=== PATIENT | female | born 1995 | race Caucasian/White ===

== ENCOUNTER 2017-03-30 22:34 | Emergency (ER) | payer MEDICAID ==
[2017-03-30 22:55] VITALS: BP 117/79; PULSE 75; RESP 16; TEMP 98.4; O2SAT 98
--- NOTE | 2017-03-31 00:15 | C.PDOC ---
History Of Present Illness 21 y/o female c/o itchy rash to distal forearms after her friend's dog licked her arms today. Denies trouble breathing, swallowing, SOB, or any other complaints. Time Seen by Provider: 03/30/17 23:27 Chief Complaint (Nursing): Allergic Reaction History Per: Patient History/Exam Limitations: no limitations Onset/Duration Of Symptoms: Hrs Current Symptoms Are (Timing): Still Present Associated Symptoms: Skin Rash, Itching Severity: Mild Recent travel outside of the [place]: No Additional History Per: Patient Past Medical History Reviewed: Historical Data, Nursing Documentation, Vital Signs Vital Signs: Last Vital Signs Temp 98.4 F 03/30/17 22:52 Pulse 75 03/30/17 22:52 Resp 16 03/30/17 22:52 BP 117/79 03/30/17 22:52 Pulse Ox 98 03/31/17 02:49 - Medical History PMH: Asthma (as a child) Family History: States: Unknown Family Hx - Social History Hx Tobacco Use: No Hx Alcohol Use: Yes Hx Substance Use: No - Immunization History 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 2 urticarial patchs on the left distal forearm.) Head: Atraumatic, Normacephalic Oral Mucosa: Moist Tongue: No Swelling Lips: No Swelling Throat: Normal, No Erythema Cardiovascular: Rhythm Regular Respiratory: Normal Breath Sounds, No Rales, No Rhonchi, No Wheezing Neurological/Psych: Oriented x3, Normal Speech, Normal Cognition ED Course And Treatment O2 Sat by Pulse Oximetry: 98 (RA) Pulse Ox Interpretation: Normal Medical Decision Making Medical Decision Making: Impression: 21 y/o female c/o itchy rash to distal forearms after her friends dog licked her arms today. Plans: * Tylenol * Benadryl Patient is in no acute distress and is improving with the urticarial rash. Patient instructed to follow up with PMD for further evaluation. Disposition Counseled Patient/Family Regarding: Diagnosis, Need For Followup, Rx Given - Disposition Referrals: [facility] at [facility] [Outside] Disposition: HOME/ ROUTINE Disposition Time: 00:13 Condition: STABLE Additional Instructions: If itch and rash persist, take one benadryl by mouth every 6 hours. May make you sleepy- no driving or operating machinery wiht this medicine. Follow up in medical clinic. Return to ER for nay worsening symptoms. Prescriptions: DiphenhydrAMINE [Benadryl] 25 mg PO Q6 #20 cap Instructions: Urticaria (ED) Forms: General Discharge Instructions, [facility] (Greenlandic) - Clinical Impression Clinical Impression: Allergic urticaria - Scribe Statement The provider has reviewed the documentation as recorded by the Scribe Michell zapata All medical record entries made by the Candelariaibmarcy were at my direction and personally dictated by me. I have reviewed the chart and agree that the record accurately reflects my personal performance of the history, physical exam, medical decision making, and the department course for this patient. I have also personally directed, reviewed, and agree with the discharge instructions and disposition.
== END 2017-03-31 00:20 | disposition home or self-care (01) ==
LOC: C.ER 22:34
DX: L50.0 Allergic urticaria (principal)

== ENCOUNTER 2017-05-02 18:02 | Emergency (ER) | payer MEDICAID ==
[2017-05-02 18:56] LABS: RBC URINE 3 /hpf (0-3); URINE BILIRUBIN NEGATIVE (NEGATIVE); URINE BLOOD NEGATIVE (NEGATIVE); URINE GLUCOSE (UA) NORMAL (Normal); URINE KETONE 2+ mg/dL (NEGATIVE); URINE LEUKOCYTE ESTERASE 2+ Leu/uL (Negative); URINE PROTEIN 1+ mg/dL (NEGATIVE); WBC URINE 22 /hpf (0-5)
[2017-05-02 18:58] LABS: URINE COLOR YELLOW (YELLOW)
[2017-05-02] MEDS ORDERED: Sodium Chloride 0.9% 1,000 ML IV ONE ×2 (20:19→20:20)
[2017-05-02 20:48] LABS: BASO # 0.1 K/uL (0.0-0.2); BASO % 0.5 % (0.0-2.0); EOS % 0.2 % (0.0-4.0); LYMPH # 1.9 K/uL (1.0-4.3); LYMPH % 12.5 % (20.0-40.0); MEAN CELL VOLUME 79.9 fL (81.0-99.0); MEAN CORPUSCULAR HEMOGLOBIN 27.4 pg (27.0-31.0); MEAN CORPUSCULAR HGB CONC 34.3 g/dL (33.0-37.0); MEAN PLATELET VOLUME 10.7 fL (7.2-11.7); MONO % 6.8 % (0.0-10.0); RED CELL DISTRIBUTION WIDTH 13.7 % (11.5-14.5)
[2017-05-02 20:56] LABS: CHLORIDE 98 mmol/L (98-107); POTASSIUM 3.5 mmol/L (3.6-5.2); SODIUM 136 mmol/L (132-148)
[2017-05-02 20:58] LABS: ALB/GLOB RATIO 1.3 (1.0-2.1); AST/SGOT 23 U/L (14-36); BILIRUBIN,TOTAL 0.8 mg/dL (0.2-1.3); CARBON DIOXIDE 23 mmol/L (22-30); GFR AFRICAN-AMERICAN > 60; TOTAL PROTEIN 7.1 g/dL (6.3-8.3)
[2017-05-02 20:59] LABS: ALKALINE PHOSPHATASE 104 U/L (38-126); ALT/SGPT 31 U/L (9-52); BLOOD UREA NITROGEN 10 mg/dL (7-17); CALCIUM 9.1 mg/dl (8.6-10.4); GLUCOSE,RANDOM 134 mg/dL (65-105)
[2017-05-02 21:22] VITALS: O2SAT 98
--- NOTE | 2017-05-02 22:14 | C.PDOC ---
History Of Present Illness 21 year old female presents to the ED with complaints of epigastric pain and vomiting for three days. Patient states she drank large amounts of alcohol Kleber night and symptoms began the next day. She denies diarrhea, fever, chills , or other complaints at this time. Chief Complaint (Nursing): Abdominal Pain History Per: Patient History/Exam Limitations: no limitations Onset/Duration Of Symptoms: Days (3 days ) Current Symptoms Are (Timing): Still Present Location Of Pain/Discomfort: Epigastric Radiation Of Pain To:: None Quality Of Discomfort: "Pain" Associated Symptoms: Vomiting. 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 Negative for: Diarrhea Physical Exam - Physical Exam Appears: Non-toxic, No Acute Distress Skin: Warm, Dry Head: Atraumatic, Normacephalic Eye(s): bilateral: Normal Inspection Oral Mucosa: Moist Neck: Supple Chest: Symmetrical, No Deformity Cardiovascular: Rhythm Regular, No Murmur Respiratory: Normal Breath Sounds, No Rales, No Rhonchi, No Wheezing Gastrointestinal/Abdominal: Soft, Tenderness (epigastric tenderness ), No Distention, No Guarding, No Rebound Extremity: Normal ROM, No Tenderness ED Course And Treatment - Laboratory Results Result Diagrams: 05/02/17 20:44 05/02/17 20:44 O2 Sat by Pulse Oximetry: 98 (room air ) Progress Note: Labs were ordered and patient was given Pepcid, Zofran, and IV fluids. Disposition Counseled Patient/Family Regarding: Diagnosis - Disposition Referrals: [facility] at [facility] [Outside] Disposition: HOME/ ROUTINE Disposition Time: 23:22 Condition: STABLE Prescriptions: Famotidine [Pepcid] 20 mg PO BID #20 tab Nitrofurantoin Macrocrystals [Macrobid] 1 cap PO BID #14 cap Ondansetron ODT [Zofran ODT] 1 odt PO BID PRN #6 odt PRN Reason: Nausea/Vomiting Instructions: Gastritis (GEN), Urinary Tract Infection in Women (GEN), Acute Nausea and Vomiting (ED) Forms: [facility] (Nauruan) - POA Present On Arrival: None - Clinical Impression Clinical Impression: Gastritis, UTI (urinary tract infection) - Scribe Statement The provider has reviewed the documentation as recorded by the Scribe Dottie
[2017-05-02 23:04] VITALS: BP 126/78; PULSE 61; RESP 20; TEMP 98.4
== END 2017-05-02 23:40 | disposition home or self-care (01) ==
LOC: C.ER 18:02
DX: K29.70 Gastritis, unspecified, without bleeding (principal); N39.0 Urinary tract infection, site not specified
CPT/HCPCS: 80053; 81001; 83690; 84703; 85025; 87086; 96361; 96374; 96375; 99284; J2405; J7040

== ENCOUNTER 2017-05-04 13:44 | Emergency (ER) | payer MEDICAID ==
[2017-05-04 14:05] VITALS: RESP 16
--- NOTE | 2017-05-04 14:21 | C.PDOC ---
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
[2017-05-04 14:37] LABS: RBC URINE 1 /hpf (0-3); URINE BACTERIA RARE (<OCC); URINE BILIRUBIN NEGATIVE (NEGATIVE); URINE BLOOD NEGATIVE (NEGATIVE); URINE COLOR Amber (YELLOW); URINE GLUCOSE (UA) NORMAL (Normal); URINE KETONE 2+ mg/dL (NEGATIVE); URINE LEUKOCYTE ESTERASE TRACE Leu/uL (Negative); URINE PROTEIN 1+ mg/dL (NEGATIVE); WBC URINE 3 /hpf (0-5)
[2017-05-04] MEDS ORDERED: Alum-Mag Hydrox-Simethicone Susp (30 mL) PO STA (14:53)
[2017-05-04] MEDS ORDERED: Belladonna-Phenobarbital PO STA (14:54)
--- NOTE | 2017-05-04 15:02 | C.PDOC ---
History Of Present Illness 21 year old female presents to the ED for evaluation of nonradiating epigastric abdominal pain associated with nausea and vomiting which initially began around 5 days ago. Patient was evaluated in [facility] on 05/02 and was diagnosed with Gastritis and UTI and discharged with prescriptions. Patient states she took her medications yesterday and found significant relief. Patient states the pain returned this morning and presents to the ED for further evaluation. Patient admits she had pork chops for dinner last night. She denies fever, chills, diarrhea, or recent travel. Time Seen by Provider: 05/04/17 14:22 Chief Complaint (Nursing): Abdominal Pain History Per: Patient History/Exam Limitations: no limitations Onset/Duration Of Symptoms: Days Current Symptoms Are (Timing): Still Present Location Of Pain/Discomfort: Epigastric Radiation Of Pain To:: None Quality Of Discomfort: "Pain" Associated Symptoms: Nausea, Vomiting. 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 Negative for: Diarrhea Physical Exam - Physical Exam Appears: Non-toxic, No Acute Distress Skin: Normal Color, Warm, Dry Head: Atraumatic, Normacephalic Eye(s): bilateral: Normal Inspection Oral Mucosa: Moist Neck: Supple Chest: Symmetrical, No Deformity, No Tenderness Cardiovascular: Rhythm Regular, No Murmur Respiratory: Normal Breath Sounds, No Rales, No Rhonchi, No Wheezing Gastrointestinal/Abdominal: Bowel Sounds (active), Soft, No Tenderness, No Guarding, No Rebound Extremity: Normal ROM, Capillary Refill (less than 2 seconds ) Neurological/Psych: Normal Speech, Normal Cognition Gait: Steady ED Course And Treatment O2 Sat by Pulse Oximetry: 99 (on RA) Pulse Ox Interpretation: Normal Medical Decision Making Medical Decision Making: Old records reviewed, the patient was seen in the ED for similar symptoms on , had negative lab work and was discharged home with pepcid. Progress: US Abdomen and labs ordered and reviewed. PO, Maalox PO, Pepcid PO and Zofran PO administered. On re-exam, the patient reports improvement of symptoms. Abdomen is soft, non- tender and patient is tolerating PO well. Lungs are CTA, heart is RRR. Ambulatory in the ED with steady gait. Follow up with the medical doctor within 1-2 days. Return if worsened. Disposition - Disposition Referrals: Evita Morales MD [Medical Doctor] - Disposition: HOME/ ROUTINE Disposition Time: 16:40 Condition: GOOD Additional Instructions: Follow up with the medical doctor within 1-2 days. Return if worsened. Prescriptions: Aluminum Hydroxide/Magnesium H [Maalox 30 ml] 30 ml PO TID #180 ml Omeprazole 20 mg PO DAILY #30 ecc Instructions: Gastritis (ED) Forms: [facility] (Ethiopian) - Clinical Impression Clinical Impression: Gastritis - PA / [employer] / Resident Statement MD/DO has reviewed & agrees with the documentation as recorded. - Scribe Statement The provider has reviewed the documentation as recorded by the Scribe (Karina Almeida) All medical record entries made by the Scribe were at my direction and personally dictated by me. I have reviewed the chart and agree that the record accurately reflects my personal performance of the history, physical exam, medical decision making, and the department course for this patient. I have also personally directed, reviewed, and agree with the discharge instructions and disposition.
[2017-05-04] MEDS ORDERED: Alum-Mag Hydrox-Simethicone Susp (30 mL) ONE (15:05)
[2017-05-04] MEDS ORDERED: Belladonna-Phenobarbital ONE (15:05)
--- NOTE | 2017-05-04 16:00 | US ---
HISTORY: RUQ, epigastric pain COMPARISON: Comparison is made to the previous study dated 10/11/2013 TECHNIQUE: Sonographic evaluation of the right upper quadrant of the abdomen. FINDINGS: LIVER: Measures 17.2 cm in length. Mild increase echogenicity of the liver parenchyma. No mass. No intrahepatic bile duct dilatation. GALLBLADDER: Unremarkable. No gallstones. COMMON BILE DUCT: Measures 3.0 mm. No stones. No dilatation. PANCREAS: Unremarkable as visualized. No mass. No ductal dilatation. RIGHT KIDNEY: Measures 11.2 x 4.7 x 5.5 cm in length. Normal echogenicity. No calculus, mass, or hydronephrosis. AORTA: No aneurysmal dilatation. IVC: Unremarkable. OTHER FINDINGS: None . IMPRESSION: No evidence of gallstones or cholecystitis. Re- demonstration of mild hepatomegaly and mild hepatic steatosis.
[2017-05-04 17:05] VITALS: BP 149/84; PULSE 85; TEMP 98.2
[2017-05-08 16:37] VITALS: O2SAT 99
== END 2017-05-04 17:05 | disposition home or self-care (01) ==
LOC: C.ER 13:44
DX: K29.70 Gastritis, unspecified, without bleeding (principal)

== ENCOUNTER 2017-06-25 00:41 | Inpatient (IN) | payer MEDICAID ==
--- NOTE | 2017-06-25 01:01 | C.PDOC ---
History Of Present Illness Patient presents to the ER with a complaint of abdominal pain, nausea and vomiting for the past 2 days, she notes blood in her vomit. Patient states she had similar episodes in the past, at the time she had an US and CT which were both negative and was told she possibly had gastritis. Patient finished her antacid medication but is now having pain again. Patient reports she still smokes but stopped drinking last month. Denies fever or chills. Time Seen by Provider: 06/25/17 01:01 Chief Complaint (Nursing): Abdominal Pain History Per: Patient History/Exam Limitations: no limitations Onset/Duration Of Symptoms: Hrs Current Symptoms Are (Timing): Still Present Severity: Mild Pain Scale Rating Of: 4 Location Of Pain/Discomfort: Epigastric Radiation Of Pain To:: None Quality Of Discomfort: Unable To Describe Associated Symptoms: Nausea, Vomiting. denies: Fever, Chills Alleviating Factors: None Last Bowel Movement: Yesterday Recent travel outside of the [place]: No Additional History Per: Family Abnormal Vaginal Bleeding: No Past Medical History Reviewed: Historical Data, Nursing Documentation, Vital Signs Vital Signs: Last Vital Signs Temp 98.1 F 06/25/17 00:48 Pulse 88 06/25/17 00:48 Resp 16 06/25/17 00:48 BP 134/81 06/25/17 00:48 Pulse Ox 98 06/25/17 01:46 - Medical History PMH: Asthma (as a child), Gastritis Surgical History: No Surg Hx Family History: States: Unknown Family Hx - Social History Hx Tobacco Use: No Hx Alcohol Use: No (former) Hx Substance Use: Yes - Immunization History Hx 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) Hx Influenza Vaccination: No Hx Pneumococcal Vaccination: No Review Of Systems Constitutional: Negative for: Fever, Chills ENT: Negative for: Throat Pain Cardiovascular: Negative for: Chest Pain Gastrointestinal: Positive for: Nausea, Vomiting, Abdominal Pain Musculoskeletal: Negative for: Back Pain Skin: Negative for: Rash Neurological: Negative for: Weakness Psych: Negative for: Anxiety Physical Exam - Physical Exam Appears: Non-toxic, Other (Morbidly obese) Skin: Warm, Dry Head: Normacephalic Eye(s): bilateral: Normal Inspection Oral Mucosa: Moist Neck: Trachea Midline, Supple Chest: Symmetrical Cardiovascular: Rhythm Regular Respiratory: No Rales, No Rhonchi, No Wheezing Gastrointestinal/Abdominal: Soft, Tenderness (Epigastric), No Guarding, No Rebound Back: No CVA Tenderness Extremity: Normal ROM Extremity: Bilateral: Atraumatic, Normal Color And Temperature, Normal ROM Pulses: Left Dorsalis Pedis: Normal, Right Dorsalis Pedis: Normal Neurological/Psych: Oriented x3, Normal Speech, Normal Cognition Gait: Steady ED Course And Treatment - Laboratory Results Result Diagrams: 06/25/17 01:26 06/25/17 01:26 O2 Sat by Pulse Oximetry: 98 (Room air) Pulse Ox Interpretation: Normal Progress Note: Blood work, urinalysis and occult blood test ordered. Protonix and zofran administered. Disposition Discussed With Dr.: Emili Hartmann Comment: accepted the pt on is service and took over the care at 2:16 AM Doctor Will See Patient In The: Hospital Counseled Patient/Family Regarding: Studies Performed, Diagnosis - Disposition Disposition: HOSPITALIZED Disposition Time: 01:01 Condition: FAIR Forms: [facility] (Uzbek) - POA Present On Arrival: None - Clinical Impression Clinical Impression: Abdominal pain, Upper GI bleed - Scribe Statement The provider has reviewed the documentation as recorded by the Scribe Aleksandar Freed All medical record entries made by the Scribe were at my direction and personally dictated by me. I have reviewed the chart and agree that the record accurately reflects my personal performance of the history, physical exam, medical decision making, and the department course for this patient. I have also personally directed, reviewed, and agree with the discharge instructions and disposition. Decision To Admit - Pt Status Changed To: Hospital Disposition Of: Inpatient - Admit Certification Admit to Inpatient:: After my assessment, the patient will require hospitalization for at least two midnights. This is because of the severity of symptoms shown, intensity of services needed, and/or the medical risk in this patient being treated as an outpatient. - InPatient: Physician Admission Certification:: After my assessment, the patient will require hospitalization for at least two midnights. This is because of the severity of symptoms shown, intensity of services needed, and/or the medical risk in this patient being treated as an outpatient. - . Bed Request Type: Regular Admitting Physician: Emili Hartmann Patient Diagnosis: Abdominal pain, Upper GI bleed
[2017-06-25 01:31] LABS: BASO % 0.4 % (0.0-2.0); EOS % 0.2 % (0.0-4.0); HEMATOCRIT 43.1 % (34.0-47.0); LYMPH # 1.4 K/uL (1.0-4.3); LYMPH % 12.9 % (20.0-40.0); MEAN CELL VOLUME 81.7 fL (81.0-99.0); MEAN CORPUSCULAR HEMOGLOBIN 27.7 pg (27.0-31.0); MEAN CORPUSCULAR HGB CONC 33.9 g/dL (33.0-37.0); MEAN PLATELET VOLUME 11.5 fL (7.2-11.7); MONO # 0.9 K/uL (0.0-0.8); RED CELL DISTRIBUTION WIDTH 14.4 % (11.5-14.5); WHITE BLOOD COUNT 11.1 K/uL (4.8-10.8)
[2017-06-25 01:38] LABS: RBC URINE 3 /hpf (0-3); URINE BACTERIA RARE (<OCC); URINE BILIRUBIN NEGATIVE (NEGATIVE); URINE BLOOD 1+ (NEGATIVE); URINE COLOR Yellow (YELLOW); URINE GLUCOSE (UA) 1+ mg/dL (Normal); URINE KETONE 1+ mg/dL (NEGATIVE); URINE LEUKOCYTE ESTERASE NEG Leu/uL (Negative); URINE PROTEIN 2+ mg/dL (NEGATIVE); URINE UROBILINOGEN NORMAL mg/dL (0.2-1.0); WBC URINE 20 /hpf (0-5)
[2017-06-25 01:39] LABS: INR 1.1
[2017-06-25 01:44] LABS: CALCIUM 9.1 mg/dl (8.6-10.4); GFR AFRICAN-AMERICAN > 60; GLUCOSE,RANDOM 145 mg/dL (65-105)
[2017-06-25 01:45] LABS: BLOOD UREA NITROGEN 7 mg/dL (7-17); SODIUM 134 mmol/L (132-148)
[2017-06-25 01:46] LABS: ALB/GLOB RATIO 1.1 (1.0-2.1); BILIRUBIN,TOTAL 1.3 mg/dL (0.2-1.3); CARBON DIOXIDE 20 mmol/L (22-30); CHLORIDE 102 mmol/L (98-107); POTASSIUM 4.6 mmol/L (3.6-5.2); TOTAL PROTEIN 8.6 g/dL (6.3-8.3)
[2017-06-25 01:47] LABS: ALKALINE PHOSPHATASE 96 U/L (38-126); ALT/SGPT 23 U/L (9-52); AST/SGOT 36 U/L (14-36)
[2017-06-25] MEDS ORDERED: Dextrose 5%/0.45% NS 1,000 ML IV ONE (02:32)
[2017-06-25] MEDS: Dextrose 5%/0.45% NS 1,000 ML IV SCH ×3 (02:44→19:30)
[2017-06-25 07:29] LABS: BASO % 0.3 % (0.0-2.0); HEMATOCRIT 39.5 % (34.0-47.0); LYMPH # 0.8 K/uL (1.0-4.3); LYMPH % 5.4 % (20.0-40.0); MEAN CELL VOLUME 79.2 fL (81.0-99.0); MEAN CORPUSCULAR HEMOGLOBIN 28.3 pg (27.0-31.0); MEAN CORPUSCULAR HGB CONC 35.7 g/dL (33.0-37.0); MEAN PLATELET VOLUME 11.2 fL (7.2-11.7); MONO # 0.4 K/uL (0.0-0.8); MONO % 2.7 % (0.0-10.0); PLATELET COUNT 218 K/uL (130-400); RED CELL DISTRIBUTION WIDTH 13.8 % (11.5-14.5); WHITE BLOOD COUNT 14.5 K/uL (4.8-10.8)
[2017-06-25 08:11] LABS: ALB/GLOB RATIO 1.6 (1.0-2.1); ALKALINE PHOSPHATASE 96 U/L (38-126); ALT/SGPT 29 U/L (9-52); AST/SGOT 20 U/L (14-36); BLOOD UREA NITROGEN 9 mg/dL (7-17); CALCIUM 9.1 mg/dl (8.6-10.4); CARBON DIOXIDE 20 mmol/L (22-30); CHLORIDE 101 mmol/L (98-107); GFR AFRICAN-AMERICAN > 60; GLUCOSE,RANDOM 179 mg/dL (65-105); POTASSIUM 3.9 mmol/L (3.6-5.2); SODIUM 133 mmol/L (132-148); TOTAL PROTEIN 6.8 g/dL (6.3-8.3)
[2017-06-25 09:12] LABS: NEUTROPHIL 92 % (50-75); TOTAL CELLS COUNTED 100
[2017-06-25 09:13] LABS: LARGE PLATELETS PRESENT
[2017-06-25 09:14] LABS: GIANT PLATELETS PRESENT
--- NOTE | 2017-06-25 14:21 | CP.PCM.HP ---
History of Present Illness - History of Present Illness History of Present Illness: COMPREHENSIVE HISTORY & PHYSICAL EXAM HPI PRESENTED TO ER WITH NAUSEA AND VOMITING MIXED WITH BLOOD . GASTRIC CONTENTS WAS POS FOR BLOOD IN 04/24, CT/U/S ABD. SHOWED FATTY LIVER NO BLACK STOOL PAST HIST. PERSONAL HIST: Smoking. [place] Alcohol. Y Allergy N Travel_- . FAMILY HIST : ROS : usage o Constitutional: Negative for weight change, chills, night sweats Eyes: Negative for redness, swelling, itching, discharge, vision changes, blurry vision, double vision, glaucoma, cataracts, Ears: Negative for hearing loss, ringing, , tinnitus, vertigo Nose: Negative for rhinorrhea, stuffiness, sniffing, itching, postnasal drip, discoloration, nasal congestion and epistaxis. Throat: Negative for throat clearing, sore throat, hoarseness, difficulty swallowing and difficulty speaking. Respiratory: Negative for cough, , sputum production, chest tightness, wheezing, pleuritic chest pain ,daytime somnolence, chronic cough, hemoptysis, snoring at night, Cardiovascular: Negative for chest pain, palpitations, orthopnea, PND, Edema of legs, leg cramps, angina, claudication, , irregular heartbeat, Neurology: Negative for irritability, muscle weakness, numbness and tingling, seizures, tremors, migraines, slurred speech, syncope, memory loss, mood changes , recurrent headaches Gastrointestinal: Negative for difficulty swallowing, diarrhea, constipation, black stools, rectal bleeding, S, flatulence, reflux, poor appetite, changes in bowel habits, abdominal pain Genitourinary: Negative for frequent urination, hematuria, discharge, incontinence, urinary retention, frequent UTI, Psychiatric: Negative for depression, anxiety/panic, suicidal tendencies, Musculoskeletal: Negative for swollen joints, back pain, , neck pain, morning stiffness of joints, . Skin: Negative for rash, ulcers, itching, dry skin and pigmented lesions. P/E: Constitutional: Appears stated age and in no apparent distress. Head: Normocephalic. Ears: External ear canals patent without inflammation. Tympanic membranes intact with normal light reflex and landmark. Eyes: Pupils are central, bilaterally equal, symmetrical and reacts to light with normal movements and no icterus or pallor. Nose: External nares are patent. Mucosa is pink Mouth-Throat: Good general appearance and condition. No post-pharyngeal/oropharyngeal erythema and tonsillar hypertrophy. Good dental hygiene. Neck-Lymphatic: Neck is supple with normal ROM, no thyromegaly, lymph nodes or masses. JVD is normal with no carotid bruit. Lungs: Clear to percussion and auscultation with bilateral normal air entry. Cardiovascular: S1 and S2 are normal with no murmurs, gallops and rub. GI Exam: No hepatomegaly. Abdomen is soft and non-tender. No Organomegaly , masses or hernias are evident and bowel sounds are normal and active. Neurology: Higher function and all cranial nerves intact, with no gross motor or sensory deficit. Superficial and deep reflexes are normal with downwards planters. No cerebellar deficit with normal gait. Musculoskeletal: No tender spots with normal curvature of the spine with no swelling or restricted ROM of the small and large joints. Extremities: Homans sign absent. Intact pulses with no pitting edema, calf tenderness or skin color changes. Skin: No rash, eruptions or abnormal skin pigmentation LAB/RADIOLOGY: ASSESMENT : UPPER GI BLEED , / GASTRITIS FATTY LIVER PLAN: SEE ORDERS Present on Admission - Present on Admission Any Indicators Present on Admission: No Past Patient History - Past Medical History & Family History Past Medical History?: Yes - Past Social History Smoking Status: Never Smoked - CARDIAC Hx Cardiac Disorders: No - PULMONARY Hx Respiratory Disorders: Yes Hx Asthma: Yes (as a child) - NEUROLOGICAL Hx Neurological Disorder: No - HEENT Hx HEENT Problems: No - RENAL Hx Chronic Kidney Disease: No - ENDOCRINE/METABOLIC Hx Endocrine Disorders: No - HEMATOLOGICAL/ONCOLOGICAL Hx Blood Disorders: No - INTEGUMENTARY Hx Dermatological Problems: No - MUSCULOSKELETAL/RHEUMATOLOGICAL Hx Musculoskeletal Disorders: No Hx Falls: No - GASTROINTESTINAL Hx Gastrointestinal Disorders: Yes Hx Gastritis: Yes - GENITOURINARY/GYNECOLOGICAL Hx Genitourinary Disorders: No - PSYCHIATRIC Hx Psychophysiologic Disorder: Yes Hx Substance Use: Yes (marijuana) - SURGICAL HISTORY Hx Surgeries: No - ANESTHESIA Hx Anesthesia: No Hx Anesthesia Reactions: No Meds Allergies/Adverse Reactions: Allergies Allergy/AdvReac Type Severity Reaction Status Date / Time No Known Allergies Allergy Verified 06/25/17 00:52 Results - Vital Signs Recent Vital Signs: Last Vital Signs Temp 98.1 F 06/25/17 08:13 Pulse 60 06/25/17 08:13 Resp 21 11/18/17 08:13 BP 133/73 06/25/17 08:13 Pulse Ox 99 06/25/17 08:13 - Labs Result Diagrams: 06/25/17 07:10 06/25/17 07:10 Labs: Laboratory Results - last 24 hr 06/25/17 06/25/17 06/25/17 01:26 01:26 01:26 WBC 11.1 H RBC 5.28 H Hgb 14.6 Hct 43.1 MCV 81.7 MCH 27.7 MCHC 33.9 RDW 14.4 Plt Count 239 MPV 11.5 Neut % (Auto) 78.5 H Lymph % (Auto) 12.9 L [place] % (Auto) 8.0 Eos % (Auto) 0.2 Baso % (Auto) 0.4 Neut # 8.7 H Lymph # 1.4 [place] # 0.9 H Eos # 0.0 Baso # 0.0 Neutrophils % (Manual) Lymphocytes % (Manual) Monocytes % (Manual) Toxic Granulation Platelet Estimate Large Platelets Giant Platelets Anisocytosis (manual) PT 12.6 H INR 1.1 APTT 18 L Sodium 134 Potassium 4.6 Chloride 102 Carbon Dioxide 20 L Anion Gap 17 BUN 7 Creatinine 0.6 L Est GFR ( Amer) > 60 Est GFR (Non-Af Amer) > 60 Random Glucose 145 H Calcium 9.1 Total Bilirubin 1.3 AST 36 D ALT 23 Alkaline Phosphatase 96 Total Protein 8.6 H Albumin 4.5 Globulin 4.1 H Albumin/Globulin Ratio 1.1 Lipase 68 Urine Color Urine Clarity Urine pH Ur Specific [place] Urine Protein Urine Glucose (UA) Urine Ketones Urine Blood Urine Nitrate Urine Bilirubin Urine Urobilinogen Ur Leukocyte Esterase Urine WBC (Auto) Urine RBC (Auto) Ur Squamous Epith Cells Urine Bacteria Hyaline Casts Urine HCG, Qual Gastric Occult Blood 06/25/17 06/25/17 06/25/17 01:27 01:43 07:10 WBC 14.5 H RBC 4.99 Hgb 14.1 Hct 39.5 MCV 79.2 L D MCH 28.3 MCHC 35.7 RDW 13.8 Plt Count 218 MPV 11.2 Neut % (Auto) 91.6 H Lymph % (Auto) 5.4 L [place] % (Auto) 2.7 Eos % (Auto) 0.0 Baso % (Auto) 0.3 Neut # 13.3 H Lymph # 0.8 L [place] # 0.4 Eos # 0.0 Baso # 0.0 Neutrophils % (Manual) 92 H Lymphocytes % (Manual) 6 L Monocytes % (Manual) 2 Toxic Granulation Present Platelet Estimate Normal Large Platelets Present Giant Platelets Present Anisocytosis (manual) Slight PT INR APTT Sodium Potassium Chloride Carbon Dioxide Anion Gap BUN Creatinine Est GFR ( Amer) Est GFR (Non-Af Amer) Random Glucose Calcium Total Bilirubin AST ALT Alkaline Phosphatase Total Protein Albumin Globulin Albumin/Globulin Ratio Lipase Urine Color Yellow Urine Clarity Hazy Urine pH 5.0 Ur Specific [place] 1.023 Urine Protein 2+ H Urine Glucose (UA) 1+ Urine Ketones 1+ H Urine Blood 1+ H Urine Nitrate Negative Urine Bilirubin Negative Urine Urobilinogen Normal Ur Leukocyte Esterase Neg Urine WBC (Auto) 20 H Urine RBC (Auto) 3 Ur Squamous Epith Cells 21 H Urine Bacteria Rare Hyaline Casts 3-5 H Urine HCG, Qual Negative Gastric Occult Blood Positive H 06/25/17 07:10 WBC RBC Hgb Hct MCV MCH MCHC RDW Plt Count MPV Neut % (Auto) Lymph % (Auto) [place] % (Auto) Eos % (Auto) Baso % (Auto) Neut # Lymph # [place] # Eos # Baso # Neutrophils % (Manual) Lymphocytes % (Manual) Monocytes % (Manual) Toxic Granulation Platelet Estimate Large Platelets Giant Platelets Anisocytosis (manual) PT INR APTT Sodium 133 Potassium 3.9 Chloride 101 Carbon Dioxide 20 L Anion Gap 15 BUN 9 Creatinine 0.6 L Est GFR ( Amer) > 60 Est GFR (Non-Af Amer) > 60 Random Glucose 179 H Calcium 9.1 Total Bilirubin 1.0 AST 20 ALT 29 Alkaline Phosphatase 96 Total Protein 6.8 Albumin 4.2 Globulin 2.6 Albumin/Globulin Ratio 1.6 Lipase Urine Color Urine Clarity Urine pH Ur Specific [place] Urine Protein Urine Glucose (UA) Urine Ketones Urine Blood Urine Nitrate Urine Bilirubin Urine Urobilinogen Ur Leukocyte Esterase Urine WBC (Auto) Urine RBC (Auto) Ur Squamous Epith Cells Urine Bacteria Hyaline Casts Urine HCG, Qual Gastric Occult Blood
[2017-06-26] MEDS: Dextrose 5%/0.45% NS 1,000 ML IV SCH ×3 (04:30→20:10)
[2017-06-26 08:34] LABS: HEMATOCRIT 38.8 % (34.0-47.0); MEAN CELL VOLUME 80.2 fL (81.0-99.0); MEAN CORPUSCULAR HEMOGLOBIN 27.7 pg (27.0-31.0); MEAN CORPUSCULAR HGB CONC 34.5 g/dL (33.0-37.0); MEAN PLATELET VOLUME 11.6 fL (7.2-11.7); RED CELL DISTRIBUTION WIDTH 13.9 % (11.5-14.5); WHITE BLOOD COUNT 12.9 K/uL (4.8-10.8)
[2017-06-26 08:58] LABS: ALB/GLOB RATIO 1.7 (1.0-2.1); ALKALINE PHOSPHATASE 86 U/L (38-126); ALT/SGPT 28 U/L (9-52); AST/SGOT 17 U/L (14-36); BILIRUBIN,DIRECT 0.6 mg/dL (0.0-0.4); BILIRUBIN,TOTAL 1.1 mg/dL (0.2-1.3); BLOOD UREA NITROGEN 7 mg/dL (7-17); CALCIUM 8.7 mg/dl (8.6-10.4); CARBON DIOXIDE 21 mmol/L (22-30); CHLORIDE 100 mmol/L (98-107); GFR AFRICAN-AMERICAN > 60; GLUCOSE,RANDOM 179 mg/dL (65-105); POTASSIUM 3.2 mmol/L (3.6-5.2); SODIUM 131 mmol/L (132-148); TOTAL PROTEIN 6.5 g/dL (6.3-8.3)
--- NOTE | 2017-06-26 11:17 | CP.PCM.CON ---
<Amarilis Kaur - Last Filed: 06/26/17 11:23> History of Present Illness - History of Present Illness History of Present Illness: GI Fellow PGY4 Consult Note This is a 21yF with no prior pmhx presenting to the ER with a complaint of abdominal pain, nausea and vomiting for the past 2 days, she notes blood in her vomit. Patient states she had similar episodes in the past, at the time she had an US and CT which were both negative and was told she possibly had gastritis. Patient finished her antacid medication prilosec but is now having pain again. Pt reports in April she had a similar episode after drinking a lot of alcohol and has since stopped drinking. Patient reports she smokes cigarets and marijuana everyday since she was 15yrs ago. Pt denies any abdominal pain associated with food consumptions and this type of pain recently started. She also notes some heartburn and acid reflux. Pt states she will have episodes of vomiting multiple times and then would notice bright blood in here emesis and she will get better after a few days followed by similar symptoms. Pt denies any constipation, melena, hematochezia. No prior EGD or colonoscopy. ROS: A 12pt ROS was negative except as above PmHx: None PsHx: None FHx: Uncle with gallbladder issues SHx: Tobacco use and smokes marijuana daily, stopped alcohol 2 months ago Past Patient History - Past Medical History & Family History Past Medical History?: Yes - Past Social History Smoking Status: Never Smoked - CARDIAC Hx Cardiac Disorders: No - PULMONARY Hx Respiratory Disorders: Yes Hx Asthma: Yes (as a child) - NEUROLOGICAL Hx Neurological Disorder: No - HEENT Hx HEENT Problems: No - RENAL Hx Chronic Kidney Disease: No - ENDOCRINE/METABOLIC Hx Endocrine Disorders: No - HEMATOLOGICAL/ONCOLOGICAL Hx Blood Disorders: No - INTEGUMENTARY Hx Dermatological Problems: No - MUSCULOSKELETAL/RHEUMATOLOGICAL Hx Musculoskeletal Disorders: No Hx Falls: No - GASTROINTESTINAL Hx Gastrointestinal Disorders: Yes Hx Gastritis: Yes - GENITOURINARY/GYNECOLOGICAL Hx Genitourinary Disorders: No - PSYCHIATRIC Hx Psychophysiologic Disorder: Yes Hx Substance Use: Yes (marijuana) - SURGICAL HISTORY Hx Surgeries: No - ANESTHESIA Hx Anesthesia: No Hx Anesthesia Reactions: No Meds Allergies/Adverse Reactions: Allergies Allergy/AdvReac Type Severity Reaction Status Date / Time No Known Allergies Allergy Verified 06/25/17 00:52 - Medications Medications: Current Medications Dextrose/Sodium Chloride (Dextrose 5%/0.45% Ns 1000 Ml) 1,000 mls @ 120 mls/hr IV .Q8H20M YE Last Admin: 06/26/17 04:30 Dose: 120 mls/hr Pantoprazole Sodium (Protonix Inj) 40 mg IVP DAILY [facility] Pneumococcal Polyvalent Vaccine (Pneumovax 23 Vaccine) 0.5 ml IM .ONCE ONE Stop: 06/27/17 10:01 Physical Exam - Constitutional Appears: Non-toxic, No Acute Distress - Head Exam Head Exam: ATRAUMATIC, NORMAL INSPECTION, NORMOCEPHALIC - Eye Exam Eye Exam: EOMI, Normal appearance, PERRL Pupil Exam: NORMAL ACCOMODATION, PERRL - ENT Exam ENT Exam: Mucous Membranes Moist, Normal Exam - Neck Exam Neck exam: Positive for: Full Rom, Normal Inspection - Respiratory Exam Respiratory Exam: Clear to Auscultation Bilateral, NORMAL BREATHING PATTERN - Cardiovascular Exam Cardiovascular Exam: REGULAR RHYTHM, RRR - GI/Abdominal Exam GI & Abdominal Exam: Normal Bowel Sounds, Soft, Tenderness. absent: Distended, Firm, Guarding, Organomegaly - Rectal Exam Rectal Exam: Deferred - Extremities Exam Extremities exam: Positive for: full ROM, normal inspection - Back Exam Back exam: NORMAL INSPECTION - Neurological Exam Neurological exam: Alert, Oriented x3 - Psychiatric Exam Psychiatric exam: Normal Affect, Normal Mood - Skin Skin Exam: Dry, Intact, Normal Color, Warm Results - Vital Signs Recent Vital Signs: Last Vital Signs Temp 97.7 F 06/26/17 00:10 Pulse 73 06/26/17 00:10 Resp 16 06/26/17 00:10 BP 122/76 06/26/17 00:10 Pulse Ox 98 06/26/17 00:10 - Labs Result Diagrams: 06/26/17 08:23 06/26/17 08:23 Labs: Laboratory Results - last 24 hr 06/26/17 06/26/17 08:23 08:23 WBC 12.9 H RBC 4.83 Hgb 13.4 Hct 38.8 MCV 80.2 L MCH 27.7 MCHC 34.5 RDW 13.9 Plt Count 202 MPV 11.6 Sodium 131 L Potassium 3.2 L Chloride 100 Carbon Dioxide 21 L Anion Gap 14 BUN 7 Creatinine 0.5 L Est GFR ( Amer) > 60 Est GFR (Non-Af Amer) > 60 Random Glucose 179 H Calcium 8.7 Total Bilirubin 1.1 Direct Bilirubin 0.6 H AST 17 ALT 28 Alkaline Phosphatase 86 Total Protein 6.5 Albumin 4.1 Globulin 2.4 Albumin/Globulin Ratio 1.7 Assessment & Plan - Assessment and Plan (Free Text) Assessment: This is a 21yF presenting with complaints of nausea, vomiting, abdominal pain and hematemesis. 1. Cyclical vomiting syndrome-cannabis induced 2. GERD/Dyspepsia 3. Hematemesis Plan: -Continue supportive care with pain control and anti-emetics -No active GI bleeding, Hgb stable, hemodynamically stable -Continue PPI po 40mg daily 30minutes prior to breakfast -Advance to clear liquid diet today -No plan for endoscopic evaluation at this time, if symptoms do not improve with PPI trial can consider outpt EGD -N/V and abdominal pain likely from Cannabis induced cyclical vomiting syndrome , this was discussed with pt and counseled on cessation -Will continue to follow pt <Tadeo Spears - Last Filed: 06/26/17 12:01> Meds - Medications Medications: Current Medications Dextrose/Sodium Chloride (Dextrose 5%/0.45% Ns 1000 Ml) 1,000 mls @ 120 mls/hr IV .Q8H20M YE Last Admin: 06/26/17 04:30 Dose: 120 mls/hr Pantoprazole Sodium (Protonix Inj) 40 mg IVP DAILY [facility] Pneumococcal Polyvalent Vaccine (Pneumovax 23 Vaccine) 0.5 ml IM .ONCE ONE Stop: 06/27/17 10:01 Results - Vital Signs Recent Vital Signs: Last Vital Signs Temp 97.7 F 06/26/17 00:10 Pulse 73 06/26/17 00:10 Resp 16 06/26/17 00:10 BP 122/76 06/26/17 00:10 Pulse Ox 98 06/26/17 00:10 - Labs Result Diagrams: 06/26/17 08:23 06/26/17 08:23 Labs: Laboratory Results - last 24 hr 06/26/17 06/26/17 06/26/17 08:23 08:23 08:23 WBC 12.9 H RBC 4.83 Hgb 13.4 Hct 38.8 MCV 80.2 L MCH 27.7 MCHC 34.5 RDW 13.9 Plt Count 202 MPV 11.6 Sodium 131 L Potassium 3.2 L Chloride 100 Carbon Dioxide 21 L Anion Gap 14 BUN 7 Creatinine 0.5 L Est GFR ( Amer) > 60 Est GFR (Non-Af Amer) > 60 Random Glucose 179 H Calcium 8.7 Total Bilirubin 1.1 Direct Bilirubin 0.6 H AST 17 ALT 28 Alkaline Phosphatase 86 Total Protein 6.5 Albumin 4.1 Globulin 2.4 Albumin/Globulin Ratio 1.7 Hepatitis A IgM Ab Negative Hep Bs Antigen Negative Hep B Core IgM Ab Negative Hepatitis C Antibody Negative Attending/Attestation - Attestation I have personally seen and examined this patient.: Yes I have fully participated in the care of the patient.: Yes I have reviewed all pertinent clinical information: Yes Notes (Text): 06/26/17 11:59 21 year old female who presents with recurrent nausea and vomiting. 1. Nausea and vomiting 2. GERD 3. Hematemesis Plan: -ddx include cyclic vomiting syndrome from chronic daily marijuana usage as well as GERD -CT done previous admission was unremarkable -minimal hematemesis noted, possible christian gordon tear from vomiting or esophagitis -recommend PPI BID -zofran as needed -liquid diet and advance as tolerated -marijuana cessation advised
--- NOTE | 2017-06-26 14:48 | CP.PCM.PN ---
Subjective - Date & Time of Evaluation Date of Evaluation: 06/26/17 Time of Evaluation: 14:46 - Subjective Subjective: CHIEF COMPLAINTS TODAY : GEN ABD PAIN A/W VOMITING NO FURTHER GI BLEEDING ROS. HEENT : N. Resp : No cough, wheezing ,pleuritic CP ,or hemoptysis Cardio : No anginal CP, PND, orthopnea, palpitation GI : No GI bleeding . 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 Musculoskel : No joint swelling , Derm : No rash Psych : Normal affect. Ext : No swelling ,calf pain PE. Pt. is alert awake in no distress. V.S As noted in the chart Head ,ear nose,throat and eyes : Normal. Neck : Supple with normal carotids. Lungs: Clear air entry. Heart : S1 & S2 normal with S4. No murmur. Abd : Soft non tender with normal bowel sounds. Neuro : Moves all ext. with no localized deficit. Ext : No edema with intact pulses.Non tender calves Derm : No rashes or decubitus ulcer. LABS/RADIOLOGY: ASSESSMENT/PLAN : ADD BENTYL PT WILL NEED EGD Objective - Vital Signs/Intake and Output Vital Signs (last 24 hours): Temp Pulse Resp BP Pulse Ox 97.7 F 73 16 122/76 98 06/26/17 00:10 06/26/17 00:10 06/26/17 00:10 06/26/17 00:10 06/26/17 00:10 Intake and Output: 06/26/17 06/26/17 11:59 23:59 Intake Total 1000 120 Output Total 50 Balance 950 120 - Medications Medications: Current Medications Dicyclomine HCl (Bentyl) 10 mg PO Q8 [facility] Last Admin: 06/26/17 13:44 Dose: 10 mg Dextrose/Sodium Chloride (Dextrose 5%/0.45% Ns 1000 Ml) 1,000 mls @ 120 mls/hr IV .Q8H20M [facility] Last Admin: 06/26/17 12:04 Dose: Not Given Ondansetron HCl (Zofran Inj) 4 mg IVP Q6 PRN PRN Reason: Nausea/Vomiting Pantoprazole Sodium (Protonix Inj) 40 mg IVP DAILY [facility] Pneumococcal Polyvalent Vaccine (Pneumovax 23 Vaccine) 0.5 ml IM .ONCE ONE Stop: 06/27/17 10:01 - Labs Labs: 06/26/17 08:23 06/26/17 08:23 PT 12.6 SECONDS (9.7-12.2) H 06/25/17 01:26 INR 1.1 06/25/17 01:26 APTT 18 SECONDS (21-34) L 06/25/17 01:26
[2017-06-26] MEDS ORDERED: Potassium Chloride 20 mEq ER Tab PO ONE (22:30)
[2017-06-27] MEDS: Dextrose 5%/0.45% NS 1,000 ML IV SCH ×3 (04:15→14:35)
[2017-06-27] MEDS ORDERED: Pneumococcal 23-Valent Vaccine IM ONE (10:00)
[2017-06-27] MEDS ORDERED: Influenza Vaccine 60 mcg/0.5 mL SYR (4YR UP) IM ONE (10:00)
--- NOTE | 2017-06-27 10:39 | CP.PCM.PN ---
<Jennifer Ram - Last Filed: 06/27/17 10:39> Subjective - Date & Time of Evaluation Date of Evaluation: 06/27/17 Time of Evaluation: 10:36 - Subjective Subjective: Jennifer Ram, PGY1, GI Progress Note for Dr Martinez: Pt seen and examined at bedside. Pt had nausea and vomiting (with some bright red blood) yesterday, is not tolerating liquid diet well. Verbalized decreased appetite. Denies fever, chills, sob. Objective - Vital Signs/Intake and Output Vital Signs (last 24 hours): Temp Pulse Resp BP Pulse Ox 98.1 F 76 20 129/72 99 06/27/17 08:00 06/27/17 08:00 06/27/17 08:00 06/27/17 08:00 06/27/17 08:00 Intake and Output: 06/27/17 06/27/17 06:59 18:59 Intake Total 2290 Output Total 500 Balance 1790 - Medications Medications: Current Medications Dicyclomine HCl (Bentyl) 10 mg PO Q8 [facility] Last Admin: 06/27/17 06:15 Dose: 10 mg Dextrose/Sodium Chloride (Dextrose 5%/0.45% Ns 1000 Ml) 1,000 mls @ 120 mls/hr IV .Q8H20M [facility] Last Admin: 06/27/17 10:19 Dose: 120 mls/hr Ondansetron HCl (Zofran Inj) 4 mg IVP Q6 PRN PRN Reason: Nausea/Vomiting Last Admin: 06/27/17 05:15 Dose: 4 mg Pantoprazole Sodium (Protonix Inj) 40 mg IVP DAILY [facility] Last Admin: 06/27/17 10:14 Dose: 40 mg - Labs Labs: 06/26/17 08:23 06/26/17 08:23 PT 12.6 SECONDS (9.7-12.2) H 06/25/17 01:26 INR 1.1 06/25/17 01:26 APTT 18 SECONDS (21-34) L 06/25/17 01:26 - Constitutional Appears: Non-toxic - Head Exam Head Exam: ATRAUMATIC, NORMOCEPHALIC - Eye Exam Eye Exam: EOMI. absent: Conjunctival injection Pupil Exam: PERRL - ENT Exam ENT Exam: Mucous Membranes Moist - Respiratory Exam Respiratory Exam: Clear to Ausculation Bilateral - Cardiovascular Exam Cardiovascular Exam: RRR, +S1, +S2 - GI/Abdominal Exam GI & Abdominal Exam: Soft, Tenderness, Hypoactive Bowel Sounds Additional comments: TTP in epigastric and RUQ. - Extremities Exam Extremities Exam: absent: Calf Tenderness, Pedal Edema - Back Exam Back Exam: absent: CVA tenderness (L), CVA tenderness (R) - Neurological Exam Neurological Exam: Alert, Awake, Oriented x3 - Psychiatric Exam Psychiatric exam: Normal Mood - Skin Skin Exam: Dry, Warm Assessment and Plan - Assessment and Plan (Free Text) Assessment: 21 years old female, daily marijuana user, presents for nausea, vomiting, hematemesis: Plan: - 2/2 cyclical vomiting syndrome - cannabis induced vs PUD vs gastritis vs gastroparesis - CT abd pelvis 05/07/17 unremarkable. - Will do EGD today. - Continue with PPI IV daily and zofran prn. Will add Reglan - Pt counseled on cessation of marijuana. - Follow up endoscopy results and cont to monitor pt. Seen and discussed with GI fellow and attending, Dr Martinez. <Juan HAAS,[facility] - Last Filed: 06/27/17 18:58> Objective - Vital Signs/Intake and Output Vital Signs (last 24 hours): Temp Pulse Resp BP Pulse Ox 98.3 F 61 20 119/76 99 06/27/17 16:00 06/27/17 16:00 06/27/17 16:00 06/27/17 16:00 06/27/17 16:00 Intake and Output: 06/27/17 06/27/17 06:59 18:59 Intake Total 2290 Output Total 500 Balance 1790 - Labs Labs: 06/26/17 08:23 06/26/17 08:23 PT 12.6 SECONDS (9.7-12.2) H 06/25/17 01:26 INR 1.1 06/25/17 01:26 APTT 18 SECONDS (21-34) L 06/25/17 01:26 Attending/Attestation - Attestation I have personally seen and examined this patient.: Yes I have fully participated in the care of the patient.: Yes I have reviewed all pertinent clinical information, including history, physical exam and plan: Yes Notes (Text): 06/27/17 18:55 Patient seen with GI fellow. This is a 21 years old female, daily marijuana user , presents for nausea, vomiting, s/p EGD with mild gastritis and unremarkable Ct scan. Marijuana cessation. PPI daily. Follow up biopsy as outpatient. Regular diet. Likely cyclical vomiting syndrome due to marijuana
--- NOTE | 2017-06-27 13:45 | CP.PCM.PN ---
Subjective - Date & Time of Evaluation Date of Evaluation: 06/27/17 Time of Evaluation: 13:44 - Subjective Subjective: CHIEF COMPLAINTS TODAY : GEN ABD PAIN A/W VOMITING NOT TOLERATING PO FLUIDS ROS. HEENT : N. Resp : No cough, wheezing ,pleuritic CP ,or hemoptysis Cardio : No anginal CP, PND, orthopnea, palpitation GI : No GI bleeding . 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 Musculoskel : No joint swelling , Derm : No rash Psych : Normal affect. Ext : No swelling ,calf pain PE. Pt. is alert awake in no distress. V.S As noted in the chart Head ,ear nose,throat and eyes : Normal. Neck : Supple with normal carotids. Lungs: Clear air entry. Heart : S1 & S2 normal with S4. No murmur. Abd : Soft non tender with normal bowel sounds. Neuro : Moves all ext. with no localized deficit. Ext : No edema with intact pulses.Non tender calves Derm : No rashes or decubitus ulcer. LABS/RADIOLOGY: ASSESSMENT/PLAN : ADD BENTYL PT WILL NEED EGD Objective - Vital Signs/Intake and Output Vital Signs (last 24 hours): Temp Pulse Resp BP Pulse Ox 98.1 F 76 20 129/72 99 06/27/17 08:00 06/27/17 08:00 06/27/17 08:00 06/27/17 08:00 06/27/17 08:00 Intake and Output: 06/27/17 06/27/17 11:59 23:59 Intake Total 1080 Balance 1080 - Medications Medications: Current Medications Dicyclomine HCl (Bentyl) 10 mg PO Q8 [facility] Last Admin: 06/27/17 06:15 Dose: 10 mg Dextrose/Sodium Chloride (Dextrose 5%/0.45% Ns 1000 Ml) 1,000 mls @ 120 mls/hr IV .Q8H20M [facility] Last Admin: 06/27/17 10:19 Dose: 120 mls/hr Metoclopramide HCl (Reglan) 10 mg IVP ACHS [facility] Ondansetron HCl (Zofran Inj) 4 mg IVP Q6 PRN PRN Reason: Nausea/Vomiting Last Admin: 06/27/17 05:15 Dose: 4 mg Pantoprazole Sodium (Protonix Inj) 40 mg IVP DAILY [facility] Last Admin: 06/27/17 10:14 Dose: 40 mg - Labs Labs: 06/26/17 08:23 06/26/17 08:23 PT 12.6 SECONDS (9.7-12.2) H 06/25/17 01:26 INR 1.1 06/25/17 01:26 APTT 18 SECONDS (21-34) L 06/25/17 01:26
[2017-06-27] MEDS ORDERED: Lactated Ringer's 500 ML IV ONE (14:21)
[2017-06-27] MEDS ORDERED: Propofol 10 mg/ml Inj (20 ML) ONE ×2 (14:33)
[2017-06-27 15:23] VITALS: O2SAT 99
--- NOTE | 2017-06-27 16:17 | CP.PCM.PN ---
Subjective - Date & Time of Evaluation Date of Evaluation: 06/27/17 Time of Evaluation: 16:17 - Subjective Subjective: Alert and orientedx3, denies acute pain or vomiting, NAD. Objective - Vital Signs/Intake and Output Vital Signs (last 24 hours): Temp Pulse Resp BP Pulse Ox 97 F L 80 18 142/61 99 06/27/17 15:22 06/27/17 15:22 06/27/17 15:22 06/27/17 15:22 06/27/17 15:22 Intake and Output: 06/27/17 06/27/17 06:59 18:59 Intake Total 2290 Output Total 500 Balance 1790 - Medications Medications: Current Medications Dicyclomine HCl (Bentyl) 10 mg PO Q8 [facility] Last Admin: 06/27/17 14:36 Dose: Not Given Dextrose/Sodium Chloride (Dextrose 5%/0.45% Ns 1000 Ml) 1,000 mls @ 120 mls/hr IV .Q8H20M [facility] Last Admin: 06/27/17 14:35 Dose: Not Given Metoclopramide HCl (Reglan) 10 mg IVP ACHS [facility] Last Admin: 06/27/17 14:36 Dose: Not Given Ondansetron HCl (Zofran Inj) 4 mg IVP Q6 PRN PRN Reason: Nausea/Vomiting Last Admin: 06/27/17 05:15 Dose: 4 mg Pantoprazole Sodium (Protonix Inj) 40 mg IVP DAILY [facility] Last Admin: 06/27/17 10:14 Dose: 40 mg - Labs Labs: 06/26/17 08:23 06/26/17 08:23 PT 12.6 SECONDS (9.7-12.2) H 06/25/17 01:26 INR 1.1 06/25/17 01:26 APTT 18 SECONDS (21-34) L 06/25/17 01:26 Assessment and Plan - Assessment and Plan (Free Text) Assessment: Patient is seen and examined. Post endoscopy today with biopsy. Denies any abdominal pain or vomiting, tolerates regular diet. Seen by DR Hartmann, plan to discharge home today on protonix and bentyl. Advised to follow up with GI in 1 week.
[2017-06-27 17:03] VITALS: BP 119/76; PULSE 61; RESP 20; TEMP 98.3
== END 2017-06-27 18:00 | disposition home or self-care (01) | DRG 891 ==
LOC: C.ER 00:41 → C.3T 02:15
PROVIDERS: ADMIT Internal Medicine Cardiovascular Disease; ATTEND Internal Medicine Cardiovascular Disease
PROC: 0DB88ZX Excision of Small Intestine, Via Natural or Artificial Opening Endoscopic, Diagnostic (ICD-10-PCS; principal; 2017-06-27 14:28)
DX: G43.A0 Cyclical vomiting, in migraine, not intractable (principal); K92.0 Hematemesis; K76.0 Fatty (change of) liver, not elsewhere classified; Z68.41 Body mass index [BMI] 40.0-44.9, adult; T40.7X5A Adverse effect of cannabis (derivatives), initial encounter; J45.909 Unspecified asthma, uncomplicated; E66.01 Morbid (severe) obesity due to excess calories; K29.70 Gastritis, unspecified, without bleeding; F17.210 Nicotine dependence, cigarettes, uncomplicated; K21.9 Gastro-esophageal reflux disease without esophagitis; K44.9 Diaphragmatic hernia without obstruction or gangrene

== ENCOUNTER 2018-06-05 18:32 | Emergency (ER) | payer BC, MEDICAID ==
[2018-06-05 19:15] VITALS: BP 133/73; PULSE 74; RESP 20; TEMP 98.4; O2SAT 97
--- NOTE | 2018-06-05 20:12 | C.PDOC ---
History Of Present Illness 22 y/o female presents for evaluation of right toe injury sustained today. Patient states she walked into corner of a trunk this morning, banged right foot, now has small ecchymosis between 4th and 5th toes on right foot with minimal pain. No changes in sensation. Patient able to ambulate, with pain. Time Seen by Provider: 06/05/18 19:33 Chief Complaint (Nursing): Lower Extremity Problem/Injury History Per: Patient History/Exam Limitations: no limitations Onset/Duration Of Symptoms: Hrs Current Symptoms Are (Timing): Still Present Past Medical History Reviewed: Historical Data, Nursing Documentation, Vital Signs Vital Signs: Last Vital Signs Temp 98.4 F 06/05/18 19:11 Pulse 74 06/05/18 19:11 Resp 20 06/05/18 19:11 BP 133/73 06/05/18 19:11 Pulse Ox 97 06/05/18 19:11 - Medical History PMH: Asthma (as a child), Gastritis Denies: Chronic Kidney Disease - [facility] Procedures EXCISION OF SMALL INTESTINE, ENDO, DIAGN (06/25/17) Family History: States: Unknown Family Hx - Social History Hx Tobacco Use: No Hx Alcohol Use: No (former) Hx Substance Use: Yes (marijuana) - Immunization History Hx Tetanus Toxoid Vaccination: Yes (2007 as per energy and conservation technician) Hx Influenza Vaccination: No Hx Pneumococcal Vaccination: No Review Of Systems Musculoskeletal: Positive for: Foot Pain (near right 4th-5th toes) Skin: Positive for: Bruising (to right 4th-5th toes) Neurological: Negative for: Weakness, Numbness, Incoordination, Other (tingling) Physical Exam - Physical Exam Appears: Non-toxic, No Acute Distress Skin: Warm, Dry Head: Normacephalic Eye(s): bilateral: PERRL Extremity: Normal ROM, Tenderness (minimally tender near web space between 4th- 5th; No 5th metatarsal tenderness), Capillary Refill (less than 2 sec to toes), No Swelling, Other (Small 2 cm ecchymosis localized to web space between the 4th and 5th toes; no open wound or active bleeding) Pulses: Left Dorsalis Pedis: Normal, Right Dorsalis Pedis: Normal Neurological/Psych: Oriented x3, Normal Motor, Normal Sensation Gait: Steady ED Course And Treatment O2 Sat by Pulse Oximetry: 97 (RA) Pulse Ox Interpretation: Normal Medical Decision Making Medical Decision Making: Impression: Contusion Plan: Patient is stable for discharge home. Advised cold compresses and motrin/tylenol as needed. Patient instructed to follow up with podiatry for further eval Disposition Counseled Patient/Family Regarding: Diagnosis, Need For Followup - Disposition Referrals: [facility] [Outside] Podiatry Clinic [Outside] Disposition: HOME/ ROUTINE Disposition Time: 20:10 Condition: GOOD Additional Instructions: Tylenol for sewell if needed. FOllow up with podiatry, call for appointment. Wear firm soled shoes for most comfort. COld compress if any swelling. 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 - Scribe Statement The provider has reviewed the documentation as recorded by the Scribe (Jazmyn Palencia) All medical record entries made by the Scribe were at my direction and personally dictated by me. I have reviewed the chart and agree that the record accurately reflects my personal performance of the history, physical exam, medical decision making, and the department course for this patient. I have also personally directed, reviewed, and agree with the discharge instructions and disposition.
== END 2018-06-05 20:17 | disposition home or self-care (01) ==
LOC: C.ER 18:32
DX: S90.121A Contusion of right lesser toe(s) without damage to nail, initial encounter (principal); W22.8XXA Striking against or struck by other objects, initial encounter

== ENCOUNTER 2018-10-01 14:39 | Emergency (ER) | payer BC ==
[2018-10-01 14:49] VITALS: RESP 20; TEMP 98.8; O2SAT 99
[2018-10-01 16:19] LABS: SQUAMOUS EPITHIAL 3 /hpf (0-5); URINE BILIRUBIN NEGATIVE (NEGATIVE); URINE BLOOD NEGATIVE (NEGATIVE); URINE CLARITY Hazy (Clear); URINE COLOR Yellow (YELLOW); URINE GLUCOSE (UA) NORMAL (Normal); URINE LEUKOCYTE ESTERASE NEG Leu/uL (Negative); URINE PROTEIN NEGATIVE (NEGATIVE); URINE UROBILINOGEN NORMAL mg/dL (0.2-1.0)
--- NOTE | 2018-10-01 16:49 | US ---
Date of service: 10/01/2018 PROCEDURE: Obstetrical ultrasound examination HISTORY: abd trauma COMPARISON: Not available TECHNIQUE: Transabdominal FINDINGS: Ultrasound examination demonstrates a single live intrauterine gestation in cephalic presentation. The heart rate is 144 beats per minute. A posterior placenta is identified. There is no evidence of placenta previa. The cervix measures 3.5 cm in length and is closed. biometry demonstrates a gestational age by ultrasound of 17 weeks 4 days. The SARAH by ultrasound is 03/07/2019. Limited review of anatomy demonstrates fluid distending the stomach and urinary bladder. Two normal kidneys are demonstrated without evidence of hydronephrosis. The anterior abdominal wall is intact. Full anatomic evaluation was not performed at this time. IMPRESSION: Single live intrauterine gestation of approximately 17 weeks 4 days gestational age. Heart rate 144 beats per minute. Posterior placenta. No previa. Cervix long and closed. Cephalic presentation.
[2018-10-01 17:09] VITALS: BP 101/69; PULSE 84
--- NOTE | 2018-10-01 17:19 | C.PDOC ---
History Of Present Illness 23 year old female presents to ED s/p hitting her stomach against a washing machine. Patient states she slipped,landed, and hit her stomach on the washing machine. , P:0, A:0. Patient is receiving OB care and has had an US. Patient denies vaginal bleeding, discharge, and vomiting. Time Seen by Provider: 10/01/18 14:51 Chief Complaint (Nursing): Abdominal Pain History Per: Patient History/Exam Limitations: no limitations Onset/Duration Of Symptoms: Hrs Context: Recent Trauma Associated Symptoms: denies: Vomiting, Other (vaginal bleeding or discharge) : 1 Para: 0 Miscarriage: 0 Past Medical History Reviewed: Historical Data, Nursing Documentation, Vital Signs Vital Signs: Last Vital Signs Temp 98.8 F 10/01/18 14:46 Pulse 84 10/01/18 17:08 Resp 20 10/01/18 17:08 BP 101/69 10/01/18 17:08 Pulse Ox 99 10/01/18 17:08 - Medical History PMH: Asthma (as a child), Gastritis Denies: Chronic Kidney Disease Surgical History: No Surg Hx - [facility] Procedures EXCISION OF SMALL INTESTINE, ENDO, DIAGN (06/25/17) Family History: States: Unknown Family Hx - Social History Hx Tobacco Use: No Hx Alcohol Use: No (former) Hx Substance Use: No - Immunization History Hx Tetanus Toxoid Vaccination: Yes (2007 as per ops analyst) Hx Influenza Vaccination: No Hx Pneumococcal Vaccination: No Review Of Systems Constitutional: Negative for: Fever, Chills, Weakness Gastrointestinal: Negative for: Nausea, Vomiting, Abdominal Pain Genitourinary: Negative for: Vaginal Discharge, Vaginal Bleeding Musculoskeletal: Negative for: Back Pain Neurological: Negative for: Weakness, Numbness, Headache, Dizziness Physical Exam - Physical Exam Appears: Well, Non-toxic, No Acute Distress Skin: Normal Color, Warm, Dry Head: Atraumatic, Normacephalic Neck: Normal ROM, Supple Chest: Symmetrical, No Deformity Cardiovascular: Rhythm Regular Respiratory: Normal Breath Sounds Gastrointestinal/Abdominal: Soft, No Tenderness Extremity: Normal ROM Neurological/Psych: Oriented x3, Normal Speech, Normal Cognition ED Course And Treatment - Laboratory Results Lab Results: Urine Color Yellow (YELLOW) 10/01/18 15:51 Urine Clarity Hazy (Clear) 10/01/18 15:51 Urine pH 5.0 (5.0-8.0) 10/01/18 15:51 Ur Specific Williams 1.023 (1.003-1.030) 10/01/18 15:51 Urine Protein Negative mg/dL (NEGATIVE) 10/01/18 15:51 Urine Glucose (UA) Normal mg/dL (Normal) 10/01/18 15:51 Urine Ketones Trace mg/dL (NEGATIVE) 10/01/18 15:51 Urine Blood Negative (NEGATIVE) 10/01/18 15:51 Urine Nitrate Negative (NEGATIVE) 10/01/18 15:51 Urine Bilirubin Negative (NEGATIVE) 10/01/18 15:51 Urine Urobilinogen Normal mg/dL (0.2-1.0) 10/01/18 15:51 Ur Leukocyte Esterase Neg Nikhil/uL (Negative) 10/01/18 15:51 Urine WBC (Auto) < 1 /hpf (0-5) 10/01/18 15:51 Urine RBC (Auto) < 1 /hpf (0-3) 10/01/18 15:51 Ur Squamous Epith Cells 3 /hpf (0-5) 10/01/18 15:51 O2 Sat by Pulse Oximetry: 99 (RA) - CT Scan/US OB Preg US Other Rad Studies (CT/US): Interpreted By Me, Read By Radiologist CT/US Interpretation: Accession No. : [id number]. Patient Name / ID : CLARISSA GEIGERY / [id number]. Exam Date : 10/01/2018 16:01:41 ( Approved ). Study Comment : Sex / Age : F / 23Y. Creator : Gustavo Emery MD. Dictator : Gustavo Emery MD. Traveling Plant Operator : Director Financial Planning : Gustavo Emery MD. Approver2 : Report Date : 10/01/2018 16:45:42. My Comment : . Date of service: 10/01/2018. PROCEDURE: Obstetrical ultrasound examination. HISTORY: abd trauma. COMPARISON: Not available. TECHNIQUE: Transabdominal. FINDINGS: Ultrasound examination demonstrates a single live intrauterine gestation in cephalic presentation. The heart rate is 144 beats per minute. A posterior placenta is identified. There is no evidence of placenta previa. The cervix measures 3.5 cm in length and is closed. biometry demonstrates a gestational age by ultrasound of 17 weeks 4 days. The SARAH by ultrasound is 03/07/2019. Limited review of anatomy demonstrates fluid distending the stomach and urinary bladder. Two normal kidneys are demon strated without evidence of hydronephrosis. The anterior abdominal wall is intact. Full anatomic evaluation was not performed at this time. IMPRESSION: Single live intrauterine gestation of approximately 17 weeks 4 days gestational age. Heart rate 144 beats per minute. Posterior placenta. No previa. Cervix long and closed. Cephalic presentation. Medical Decision Making Medical Decision Making: Impression: 23 year old with recent trauma to the stomach Plan UA ordered for patient. OB Preg US ordered for patient. Disposition - Dis[facility] - Disposition: HOME/ ROUTINE Disposition Time: 16:00 Condition: GOOD Additional Instructions: PATT ROMO, thank you for letting us take care of you today. The emergency medical care you received today was directed at your acute symptoms. If you were prescribed any medication, please fill it and take as directed. It may take several days for your symptoms to resolve. Return to the Emergency Department if your symptoms worsen, do not improve, or if you have any other problems. Please contact your doctor or call one of the physicians/clinics you have been referred to that are listed on the Patient Visit Information form that is included in your discharge packet. Bring any paperwork you were given at discharge with you along with any medications you are taking to your follow up visit. Our treatment cannot replace ongoing medical care by a primary care provider outside of the emergency department. Thank you for allowing the [facility] team to be part of your care today. Follow up with your OB doctor this week. Return to the emergency room if you have any concerns. Instructions: - [facility] Forms: [employer] (Comoran), Work Excuse - Clinical Impression Clinical Impression: Normal IUP (intrauterine ) on ultrasound
== END 2018-10-01 17:09 | disposition home or self-care (01) ==
LOC: C.ER 14:39
DX: O26.892 Other specified pregnancy related conditions, second trimester (principal); Z3A.17 17 weeks gestation of pregnancy

== ENCOUNTER 2018-10-24 18:29 | Observation (INO) | payer BC ==
[2018-10-24 19:12] VITALS: BMI 51.5
[2018-10-24] MEDS: Dextrose 5%/Lactated Ringer's 1,000 ML IV SCH ×2 (19:30→21:29)
[2018-10-24 19:45] LABS: HEMOGLOBIN 13.5 g/dL (11.0-16.0); MEAN CORPUSCULAR HEMOGLOBIN 29.1 pg (27.0-31.0); MEAN PLATELET VOLUME 10.5 fL (7.2-11.7); RBC 4.64 Mil/uL (3.80-5.20); RED CELL DISTRIBUTION WIDTH 14.4 % (11.5-14.5)
[2018-10-24 19:51] LABS: MEAN CELL VOLUME 83.3 fL (81.0-99.0); WHITE BLOOD COUNT 20.2 K/uL (4.8-10.8)
[2018-10-24 19:56] LABS: SQUAMOUS EPITHIAL 14 /hpf (0-5); URINE BACTERIA RARE (<OCC); URINE BILIRUBIN NEGATIVE (NEGATIVE); URINE BLOOD NEGATIVE (NEGATIVE); URINE CLARITY Hazy (Clear); URINE COLOR Amber (YELLOW); URINE GLUCOSE (UA) 1+ mg/dL (Normal); URINE LEUKOCYTE ESTERASE NEG Leu/uL (Negative); URINE PROTEIN 3+ mg/dL (NEGATIVE); URINE UROBILINOGEN NORMAL mg/dL (0.2-1.0)
[2018-10-24 20:01] LABS: ALB/GLOB RATIO 1.4 (1.0-2.1); ALBUMIN 4.1 g/dL (3.5-5.0); ALT/SGPT 115 U/L (9-52); AMYLASE 59 U/L (30-110); AST/SGOT 95 U/L (14-36); BLOOD UREA NITROGEN 8 mg/dL (7-17); CALCIUM 9.6 mg/dl (8.6-10.4); GFR NON-AFRICAN AMERICAN > 60; LIPASE 49 U/L (23-300)
[2018-10-24 20:02] LABS: BARBITURATES, UR NEGATIVE (NEGATIVE); BENZODIAZEPINES, UR NEGATIVE (NEGATIVE); OPIATES, UR NEGATIVE (NEGATIVE); PHENCYCLIDINE, UR NEGATIVE (NEGATIVE)
[2018-10-24] MEDS ORDERED: Dextrose 5%/Lactated Ringer's 1,000 ML IV SCH (21:55)
[2018-10-25] MEDS ORDERED: guaiFENesin DM 100 mg-10 mg/5 ml UD PO PRN
--- NOTE | 2018-10-25 00:06 | OBHP ---
Datetime: 10/24/2018 20:02 IP Adm Impression: , intrauterine IP Chief Complaint Other: Nausea, vomiting, diarrhea IP Admit Plan: Observation/Evaluation Admit Comment, IP Provider: This is a patient of Dr. Harvey - affiliated with [facility] 23 y.o. , LMP 06/05/18, SARAH 03/11/19, EGA 20w 2d c/o vomiting upon awakening at 0500 hours and "all day; at least 12 times. Associated with passage of soft BM x 3. (+) nausea. Denies sick contact. Ate food dlivered from a restaurant approx 1800 hours 10/23/18: nachos, with cheese, guacamole and st eak. She's the onl yone who ate this meal. Denies fever, chills, sick contact or recent travel. Not y et experienced quickening. care: Dr. Harvey/ [facility]. Abnormal 1 hour glucose screening last week; to do 3 hour test nicole rrow. 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 Denies H/O STIs. No abnormal Pap PMH: h/o asthma, since "I was little" Last attack 3 years ago. Denies h/o intubation PSH: denies NKDA Meds: PNV Soc Hx: denies current tobacco use; prior to , 4 cig/d; denies illicit drug or EtOH use. Lives with her mother. Works in a [employer]. Fam Hx:Mother alive 44 - nomed issues. Father age 46 - heart disease. MGM - mitali st cancer P.E.: as above. Morbidly obese in NAD. Occ cough (states had vomited twice since on L_D) - greenis h. Awake, alert, oriented to time, person and place. Pleasant and cooperative Assessment: 23 y.o. P0, 20w 2d, FHR auscultated and appropriate for gestational. Acute gastroenter itis (food poisoning). Vital signs stable. Plan: 1) zofran 4 mg IVP x 1 2) IVFs 3) CBC, comp, lipase, amylase, U/A, UDS 4) observe Addendum: - U/A: ketones 2+; S.G. 1.032, glucose 1+ ; leuk esterase (-) - UDS (+) cannibinoids - WBC - 20.2 ( no left shift) - AST/ALT 95/115 - lipase/amylase both negative Case D/W Dr. Torres, Hospitalist promotions director, who recommends the followin) hepatitis panel (in particular, Hep A can present this way) 2) procalcitonin ( determine is elevated is truly infectious) 3) send stool for WBC, culture and ova _ parsiates 4) RUQ ultrsound 5) Repeat comp metabolic panel for trend in ST/ALT 6) F/U official medicine/GI consultation as indicated. All of this was D/W patient who expressed an understanding and agrees. Plan: 1) Admit for observation 2) Continue IVFs: D5LR 3) laboratory tests as above, incl RUQ sono 4) Ob ultrasound, in AM 5) Close observation/monitoring Patient with cough - benadryl 25 mg p.o. x 1 - robitussin 5 mL p.o. x 1 now IP Fetus A Comments: FHR auscultated - confirmed by patietn and FOB FHR - Baseline A Provider: 160 Contraction Comments Provider: none Gestation - Est Wks by US: 20w 2d EGA AdmitDate IP: 20.2 IP Chief Complaint: Other Dilatation, Provider: deferred
[2018-10-25 07:43] LABS: ALB/GLOB RATIO 1.3 (1.0-2.1); ALBUMIN 3.3 g/dL (3.5-5.0); ALT/SGPT 84 U/L (9-52); AST/SGOT 60 U/L (14-36); BLOOD UREA NITROGEN 5 mg/dL (7-17); GFR NON-AFRICAN AMERICAN > 60
[2018-10-25 08:10] LABS: HEPATITIS B SURFACE AG Negative (NEGATIVE)
[2018-10-25 08:15] LABS: HEPATITIS A IGM NEGATIVE (NEGATIVE); HEPATITIS B CORE AB NEGATIVE (NEGATIVE)
[2018-10-25 08:27] LABS: HEPATITIS C ANTIBODY NEGATIVE (NEGATIVE)
[2018-10-25 10:23] LABS: MEAN CELL VOLUME 83.3 fL (81.0-99.0); MEAN CORPUSCULAR HEMOGLOBIN 29.8 pg (27.0-31.0); MEAN CORPUSCULAR HGB CONC 35.8 g/dL (33.0-37.0); MEAN PLATELET VOLUME 10.6 fL (7.2-11.7); RBC 4.03 Mil/uL (3.80-5.20)
--- NOTE | 2018-10-25 10:37 | US ---
Indication: 20w 4d. P0 Comparison: Ob limited performed 10/01/18 Technique: Real-time ultrasound was performed through the pelvis. Findings: There is a single living fetus in cephalic presentation. Posterior placenta. The placenta is not previa. Bilateral ovaries are not visualized. There are no adnexal masses or cysts evident. Cervix length measures approximately 3.7 cm. The study was performed for emergent evaluation, and the whole anatomic survey of the fetus was not performed. This should be performed on an outpatient elective basis as clinically warranted. Measurements and calculations: Fetus has a composite sonographic age of 20 weeks 6 days. This calculation is based on the biparietal diameter, head circumference, abdominal circumference, and femur length. Estimated heart rate 156 beats per min. Estimated weight 387.8 g. Impression: Limited study as above. Single living fetus with a composite sonographic age of 20 weeks 6 days. Estimated heart rate 156 beats per min.
--- NOTE | 2018-10-25 10:43 | US ---
Date of service: 10/25/2018 HISTORY: Vomiting; Elevated LFTs and WBCs COMPARISON: Limited abdominal ultrasound performed 05/04/17 TECHNIQUE: Sonographic evaluation of the right upper quadrant of the abdomen. FINDINGS: LIVER: Measures 18.5 cm in length. Echogenic liver may be seen in setting of hepatic parenchymal disease or fatty infiltration. No focal hepatic mass identified. The main portal vein appears patent with normal directional flow. No intrahepatic bile duct dilatation. GALLBLADDER: No gallstones. No gallbladder wall thickening or pericholecystic edema. Negative sonographic Pantoja's sign as assessed by the software technical lead. COMMON BILE DUCT: Measures 4 mm. PANCREAS: Not well-visualized. RIGHT KIDNEY: Measures approximately 12.8 x 6.7 x 6.2 cm. No obstructing calculus or hydronephrosis. AORTA: Limited visualization appears grossly unremarkable. IVC: Limited visualization appears grossly unremarkable. OTHER FINDINGS: None . IMPRESSION: Borderline hepatomegaly. Echogenic liver may be seen in setting of hepatic parenchymal disease or fatty infiltration.
== END 2018-10-25 12:00 | disposition hospice, home (50) ==
LOC: C.EROB 18:29 → C.4D 21:30
PROVIDERS: ADMIT Obstetrics & Gynecology; ATTEND Obstetrics & Gynecology
DX: O99.612 Diseases of the digestive system complicating pregnancy, second trimester (principal); K92.89 Other specified diseases of the digestive system; K52.9 Noninfective gastroenteritis and colitis, unspecified; O99.332 Smoking (tobacco) complicating pregnancy, second trimester; Z3A.20 20 weeks gestation of pregnancy; F17.210 Nicotine dependence, cigarettes, uncomplicated
CPT/HCPCS: 76705; 76815; 80053; 80074; 81001; 82150; 83690; 84145; 85027; 96360; 96361; 96374; G0378; G0480; J2405; J7120

== ENCOUNTER 2018-10-29 13:40 | Emergency (ER) | payer BC ==
--- NOTE | 2018-10-29 14:36 | OBHP ---
Datetime: 10/29/2018 14:17 Admit Comment, IP Provider: Patient known from visit 10/24 - 10/25 23 y.o. P0, 21 weeks, c/o worsening nausea "ever since I left" and vomiting x 12 episodes since th is AM. Patient also reports chest pain, onset Tuesday10/26/18, and worsening today "while I was at wor k". Patient seen 10/24-10/25 with similar c/o nausea and vomiting, S/P food ingestion 10/23/18 - presume d acute gastroenteritis. Incidental finding of elevated liver enzymes, which were trending down at 12 hours post observation. Upper abdominal ultrasound performed revealed no gallstones; or hepatobiliar y pathology. OB ultraosund revealed SIUP, c/w dates with cardiac activity. Patient states she called her Ob provider's office as she was instructed: "I was told not to come in ..."since it is gastroent eritis, there's nothing t odo". Patient states has a aappointment 10/30/18. 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 Denies H/O STIs. No abnormal Pap PMH: h/o asthma, since "I was little" Last attack 3 years ago. Denies h/o intubation PSH: denies NKDA Meds: PNV Soc Hx: denies current tobacco use; prior to , 4 cig/d; denies illicit drug or EtOH use. Lives with her mother. Works in a [employer]. Fam Hx:Mother alive 44 - nomed issues. Father age 46 - heart disease. MGM - mitali st cancer P.E.: as above. Morbidly obese in NAD. Awake, alert, oriented to time, person and place. Pleasan t and cooperative Assessment: 23 y.o. P0, 21 weeks, FHR auscultated and wnl. New complaint of chest pain with recurr ing nausea and vomiting - for further evaluation. Patient is cleared form Obstetric perspective. Ibeth ent escorted to E.D. by R. N. Plan: 1) as above 2) Patient instructed to keep appointment as schedueld Pelvic Type - PN: Not Done Extremities - PN: Normal Abdomen - PN: Normal Back - PN: Normal Breast - PN: Not Done Lungs - PN: Normal Heart - PN: Normal Thyroid - PN: Not Done Neurologic - PN: Normal HEENT - PN: Normal General - PN: Normal FHR - Baseline A Provider: 156 Comments, ACOG Physical Exam: Abdomen: Obese. ravid. Non tender Gestation - Est Wks by US: 21.0 Vital Signs Provider: Reviewed; Within Normal Limits Genitourinary Exam: Not Done DTRs - PN: Not Done Datetime: 10/25/2018 07:56 Contraction Comments Provider: 0 Datetime: 10/24/2018 20:02 EGA AdmitDate IP: 20.2
--- NOTE | 2018-10-29 14:55 | C.PDOC ---
History Of Present Illness 23 y/o female presents to the ED complaining of persistent nausea and vomiting since 10/23/18. Patient was admitted OB OBS 10/25 for the same, initially had elevated LFTs but improved during observation. RUQ sonogram was wnl. Patient r eports persistent nausea and vomiting, last episode was 2 hours HIGH LIGHTER. Patient also complains of new-onset chest and epigastric burning for the past 3 days. Currently patient is not on anti-emetic or GI meds. She denies any fevers, chills, changes in bowel movements, or other associated symptoms. s/p OB clearance prior to ER eval Time Seen by Provider: 10/29/18 14:50 Chief Complaint (Nursing): Abdominal Pain History Per: Patient History/Exam Limitations: no limitations Onset/Duration Of Symptoms: Days Current Symptoms Are (Timing): Still Present Quality Of Discomfort: Burning Associated Symptoms: Nausea, Vomiting Abnormal Vaginal Bleeding: No Past Medical History Reviewed: Historical Data, Nursing Documentation, Vital Signs Vital Signs: Last Vital Signs Temp 98.5 F 10/29/18 14:42 Pulse 71 10/29/18 14:42 Resp 20 10/29/18 14:42 BP 129/86 10/29/18 14:42 Pulse Ox 98 10/29/18 14:42 - Medical History PMH: Asthma (as a child), Gastritis Denies: Chronic Kidney Disease Surgical History: No Surg Hx - [facility] Procedures EXCISION OF SMALL INTESTINE, ENDO, DIAGN (06/25/17) Family History: States: Unknown Family Hx - Social History Hx Tobacco Use: No Hx Alcohol Use: No (former) Hx Substance Use: No - Immunization History Hx Tetanus Toxoid Vaccination: Yes (2007 as per healthcare advisory services manager) Hx Influenza Vaccination: No Hx Pneumococcal Vaccination: No Review Of Systems Except As Marked, All Systems Reviewed And Found Negative. Constitutional: Negative for: Fever, Chills Eyes: Negative for: Vision Change ENT: Negative for: Nose Congestion Respiratory: Negative for: Cough, Shortness of Breath Gastrointestinal: Positive for: Nausea, Vomiting, Abdominal Pain (and epigastric/chest burning). Negative for: Diarrhea, Constipation Genitourinary: Negative for: Dysuria Musculoskeletal: Negative for: Back Pain Skin: Negative for: Rash Neurological: Negative for: Weakness, Numbness Physical Exam - Physical Exam Appears: Non-toxic, No Acute Distress Skin: Warm, Dry Head: Atraumatic, Normacephalic Eye(s): bilateral: Normal Inspection (anicteric sclera), PERRL, EOMI Oral Mucosa: Moist Neck: Normal ROM Chest: Symmetrical Cardiovascular: Rhythm Regular, No Murmur Respiratory: Normal Breath Sounds, No Accessory Muscle Use, No Wheezing, Other (NARD) Gastrointestinal/Abdominal: Soft (and obese abdomen), No Tenderness, No Distention, No Guarding, No Rebound Back: Normal Inspection, No CVA Tenderness Extremity: Bilateral: Atraumatic, Normal Color And Temperature, Normal ROM Neurological/Psych: Oriented x3, Normal Speech ED Course And Treatment - Laboratory Results Result Diagrams: 10/29/18 15:28 10/29/18 17:05 ECG: Interpreted By Me ECG Rhythm: Sinus Rhythm ECG Interpretation: No Acute Changes Rate From EC O2 Sat by Pulse Oximetry: 98 (RA) Pulse Ox Interpretation: Normal Progress - Re-Evaluation Re-evaluation Note: 10/29/18 17:17 LAB LOST CMP PS FEELING BETTER, NO RECUR NV APPEARS COMFORTABLE - Data Reviewed Data Reviewed: Lab, Old records Medical Decision Making Medical Decision Making: Impression: Epigastric burning with N/V, during Initial Plan: - Blood work - 8 mg IV Zofran - 30 ml PO Maalox - 15 ml PO viscous lido - NS IV fluids infusing - Reassess Disposition Counseled Patient/Family Regarding: Studies Performed, Diagnosis, Need For Fol lowup, Rx Given - Disposition Referrals: YOUR,OBGYN [Other] Disposition: HOME/ ROUTINE Disposition Time: 17:50 Condition: IMPROVED Prescriptions: Aluminum Hydroxide/Magnesium H [Maalox 30 ml] 30 ml PO TID #1 udc Ondansetron ODT [Zofran ODT] 4 mg PO TID PRN #12 odt PRN Reason: Nausea/Vomiting Instructions: Nausea and Vomiting of (DC), Hypokalemia (DC) Forms: [facility] (Greenlandic), Work Excuse - Clinical Impression Clinical Impression: Vomiting , Hypokalemia - Scribe Statement The provider has reviewed the documentation as recorded by the Candelariaibmarcy Palencia Provider Attestation: All medical record entries made by the Scribe were at my direction and personally dictated by me. I have reviewed the chart and agree that the record accurately reflects my personal performance of the history, physical exam, medical decision making, and the department course for this patient. I have also personally directed, reviewed, and agree with the discharge instructions and disposition.
[2018-10-29] MEDS ORDERED: Sodium Chloride 0.9% 1,000 ML IV ONE (15:05)
[2018-10-29] MEDS ORDERED: Alum-Mag Hydrox-Simethicone Susp (30 mL) PO STA (15:06)
[2018-10-29] MEDS ORDERED: Aluminum Hydroxide/Magnesium Hydroxide Susp (30 mL) ONE (15:33)
[2018-10-29] MEDS ORDERED: Sodium Chloride 0.9% 1,000 ML ONE (15:33)
[2018-10-29 15:48] LABS: BASO % 0.3 % (0.0-2.0); EOS % 0.2 % (0.0-4.0); HEMOGLOBIN 13.1 g/dL (11.0-16.0); LYMPH # 1.7 K/uL (1.0-4.3); LYMPH % 9.6 % (20.0-40.0); MEAN CELL VOLUME 83.4 fL (81.0-99.0); MEAN CORPUSCULAR HEMOGLOBIN 28.7 pg (27.0-31.0); MEAN CORPUSCULAR HGB CONC 34.4 g/dL (33.0-37.0); MEAN PLATELET VOLUME 10.4 fL (7.2-11.7); MONO # 1.2 K/uL (0.0-0.8); MONO % 6.9 % (0.0-10.0); NEUT # 14.5 K/uL (1.8-7.0); NRBC % 0.1 % (0.0-2.0); PLATELET COUNT 207 K/uL (130-400); RBC 4.57 Mil/uL (3.80-5.20); RED CELL DISTRIBUTION WIDTH 14.2 % (11.5-14.5); WHITE BLOOD COUNT 17.4 K/uL (4.8-10.8)
[2018-10-29 16:53] LABS: BANDS 1 % (0-2); LYMPHOCYTE 6 % (20-40); MONOCYTE 6 % (0-10); NEUTROPHIL 86 % (50-75); PLATELET ESTIMATE NORMAL (NORMAL); REACTIVE LYMPHOCYTES 1 % (0-0); TOTAL CELLS COUNTED 100
[2018-10-29 17:46] LABS: ALB/GLOB RATIO 1.4 (1.0-2.1); ALBUMIN 3.7 g/dL (3.5-5.0); ALT/SGPT 39 U/L (9-52); AST/SGOT 29 U/L (14-36); BLOOD UREA NITROGEN 5 mg/dL (7-17); GFR NON-AFRICAN AMERICAN > 60
[2018-10-29] MEDS ORDERED: Potassium Chloride 20 mEq/15 ml LIQ UD PO STA (17:50)
[2018-10-29] MEDS ORDERED: Potassium Chloride 20 mEq ER Tab PO ONE (18:02)
[2018-10-29] MEDS ORDERED: Potassium Chloride 20 mEq/15 ml LIQ UD ONE (18:08)
[2018-10-29 18:15] VITALS: BP 134/85; PULSE 82; RESP 18; TEMP 98.9; O2SAT 99
--- NOTE | 2018-10-30 09:25 | CARD ---
APPROVED REPORT Date of service: 10/29/2018 EKG Measurement Heart [id number] <Conclusion> Normal sinus rhythm with sinus arrhythmia Normal ECG
== END 2018-10-29 18:17 | disposition home or self-care (01) ==
LOC: C.ER 13:40
DX: O21.9 Vomiting of pregnancy, unspecified (principal); E87.6 Hypokalemia; Z3A.21 21 weeks gestation of pregnancy
CPT/HCPCS: 80053; 85025; 93005; 96374; 99284; J2405; J7030

== ENCOUNTER 2018-12-31 23:40 | Emergency (ER) | payer BC ==
--- NOTE | 2018-12-31 23:51 | OBADHP ---
Datetime: 10/29/2018 14:17 Admit Comment, IP Provider: Patient known from visit 10/24 - 10/25 23 y.o. P0, 21 weeks, c/o worsening nausea "ever since I left" and vomiting x 12 episodes since th is AM. Patient also reports chest pain, onset Tuesday10/26/18, and worsening today "while I was at wor k". Patient seen 10/24-10/25 with similar c/o nausea and vomiting, S/P food ingestion 10/23/18 - presume d acute gastroenteritis. Incidental finding of elevated liver enzymes, which were trending down at 12 hours post observation. Upper abdominal ultrasound performed revealed no gallstones; or hepatobiliar y pathology. OB ultraosund revealed SIUP, c/w dates with cardiac activity. Patient states she called her Ob provider's office as she was instructed: "I was told not to come in ..."since it is gastroent eritis, there's nothing t odo". Patient states has a aappointment 10/30/18. 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 Denies H/O STIs. No abnormal Pap PMH: h/o asthma, since "I was little" Last attack 3 years ago. Denies h/o intubation PSH: denies NKDA Meds: PNV Soc Hx: denies current tobacco use; prior to , 4 cig/d; denies illicit drug or EtOH use. Lives with her mother. Works in a [employer]. Fam Hx:Mother alive 44 - nomed issues. Father age 46 - heart disease. MGM - mitali st cancer P.E.: as above. Morbidly obese in NAD. Awake, alert, oriented to time, person and place. Pleasan t and cooperative Assessment: 23 y.o. P0, 21 weeks, FHR auscultated and wnl. New complaint of chest pain with recurr ing nausea and vomiting - for further evaluation. Patient is cleared form Obstetric perspective. Ibeth ent escorted to E.D. by R. N. Plan: 1) as above 2) Patient instructed to keep appointment as schedueld Pelvic Type - PN: Not Done Extremities - PN: Normal Abdomen - PN: Normal Back - PN: Normal Breast - PN: Not Done Lungs - PN: Normal Heart - PN: Normal Thyroid - PN: Not Done Neurologic - PN: Normal HEENT - PN: Normal General - PN: Normal FHR - Baseline A Provider: 156 Comments, ACOG Physical Exam: Abdomen: Obese. ravid. Non tender Gestation - Est Wks by US: 21.0 Vital Signs Provider: Reviewed; Within Normal Limits Genitourinary Exam: Not Done DTRs - PN: Not Done Datetime: 10/25/2018 07:56 Contraction Comments Provider: 0 Datetime: 10/24/2018 20:02 IP Chief Complaint Other: Nausea, vomiting, diarrhea IP Fetus A Comments: FHR auscultated - confirmed by patietn and FOB IP Chief Complaint: Other Dilatation, Provider: deferred EGA AdmitDate IP: 20.2 IP Adm Impression: , intrauterine IP Admit Plan: Observation/Evaluation
[2019-01-01 00:29] VITALS: BMI 33.1
[2019-01-01] MEDS ORDERED: Sodium Chloride 0.9% 1,000 ML IV ONE (00:31)
--- NOTE | 2019-01-01 00:48 | OBHP ---
Datetime: 01/01/2019 00:41 IP Adm Impression: , intrauterine ; No Active Labor; Intact Membranes IP Chief Complaint Other: nausea/vomiting IP Admit Plan: Observation/Evaluation Admit Comment, IP Provider: A/P: IUP at 30 wks with N/V - primagravida - N/V - labs drawn - IVF - reglan ivp - no ctxs, lof, vb, admits to + FM - will observe overnight FHR - Baseline A Provider: 150 Contraction Comments Provider: quiet EGA AdmitDate IP: 30.1 Vital Signs Provider: Reviewed; Within Normal Limits IP Chief Complaint: Other NICHD Variability Prov Fetus A: Moderate 6-25bpm NICHD Accel Fetus A IP Provider: 10X10 FHR Category Provider Fetus A: Category I NICHD Decel Fetus A IP Provider: None Datetime: 10/24/2018 20:02 IP Indication for Induction: Not Applicable
[2019-01-01 01:53] LABS: BASO # 0.1 K/uL (0.0-0.2); BASO % 0.3 % (0.0-2.0); EOS % 0.1 % (0.0-4.0); HEMOGLOBIN 12.8 g/dL (11.0-16.0); LYMPH # 1.3 K/uL (1.0-4.3); LYMPH % 6.9 % (20.0-40.0); MEAN CORPUSCULAR HEMOGLOBIN 29.2 pg (27.0-31.0); MEAN CORPUSCULAR HGB CONC 34.7 g/dL (33.0-37.0); MEAN PLATELET VOLUME 11.4 fL (7.2-11.7); MONO % 5.1 % (0.0-10.0); NEUT # 17.1 K/uL (1.8-7.0); NEUT % 87.6 % (50.0-75.0); PLATELET COUNT 228 K/uL (130-400); RBC 4.39 Mil/uL (3.80-5.20); RED CELL DISTRIBUTION WIDTH 13.6 % (11.5-14.5); WHITE BLOOD COUNT 19.5 K/uL (4.8-10.8)
[2019-01-01 01:55] LABS: SQUAMOUS EPITHIAL 11 /hpf (0-5); URINE BACTERIA RARE (<OCC); URINE BILIRUBIN NEGATIVE (NEGATIVE); URINE BLOOD NEGATIVE (NEGATIVE); URINE CLARITY Hazy (Clear); URINE COLOR Amber (YELLOW); URINE GLUCOSE (UA) 1+ mg/dL (Normal); URINE LEUKOCYTE ESTERASE 1+ Leu/uL (Negative); URINE PROTEIN 2+ mg/dL (NEGATIVE)
[2019-01-01 02:21] LABS: ALB/GLOB RATIO 1.2 (1.0-2.1); ALT/SGPT 25 U/L (9-52); AMYLASE 76 U/L (30-110); AST/SGOT 30 U/L (14-36); BLOOD UREA NITROGEN 7 mg/dL (7-17); GFR NON-AFRICAN AMERICAN > 60; LIPASE 158 U/L (23-300)
[2019-01-01 03:38] LABS: BANDS 1 % (0-2); LYMPHOCYTE 8 % (20-40); MONOCYTE 8 % (0-10); NEUTROPHIL 83 % (50-75); PLATELET ESTIMATE NORMAL (NORMAL); TOTAL CELLS COUNTED 100
--- NOTE | 2019-01-01 09:04 | OBPN ---
Datetime: 01/01/2019 07:46 IP Progress Plan: Discharge Contraction Comments Provider: none FHR - Baseline A Provider: 150 Gestation - Est Wks by US: 30.0 IP Progress Note Comment: Patient is received in LDR#4 in the bathroom Patietn states she feels well "better" S/P zofran at 0600 hours, no vomiting since. Not really hun gry; ..."just thirsty" (+) AFM. Denies LOF, VB, abdominal pain/Ctx Labs reviewed Assessment: 23 y.o. P0, 30w 1d, excessive vomiting. Ketonuria noted; no other electrolyte imbalanc e. Category 1 tracing. Patient desires to go home. Patient counseled on the following: small and frequent meals, dry and bland foods, nothing greasy, no heavy sauces or spicy; consume electrolyte repleninshing beverages. To mitigate the side effect o f constipation secondary to zofran, patient advised to consume 1 to 2 prunes per day. It is unclear w simba patient's last visit with her primary OB provider. She states she was seen after she was discharg ed from her hospitalization at [facility] 2 weeks ago x 1 week. Then she stated she may have seen hi m "early December". Patient encouraged to call the office tomorrow, January 02, and anticipate being seen by the end of this week. Patient expressed an understanding and agrees. Patient is clinically stable. Plan: 1) Discharge home 2) Rx: zofran 4 mg 1 tab p.o. Q 6H x 24 hr, then Q 8h, PRN, #24 3) Call 's office for appointment SAM 4) Reviewed S/S PTL Vital Signs Provider: Reviewed; Within Normal Limits Dilatation, Provider: deferred NICHD Decel Fetus A IP Provider: None Datetime: 01/01/2019 00:41 NICHD Accel Fetus A IP Provider: 10X10 FHR Category Provider Fetus A: Category I NICHD Variability Prov Fetus A: Moderate 6-25bpm
[2019-01-01 13:22] VITALS: BP 120/64; PULSE 86; RESP 20; TEMP 99
== END 2019-01-01 08:42 | disposition home or self-care (01) ==
LOC: C.EROB 23:40
DX: O26.893 Other specified pregnancy related conditions, third trimester (principal); R07.9 Chest pain, unspecified; O21.2 Late vomiting of pregnancy; Z3A.21 21 weeks gestation of pregnancy
CPT/HCPCS: 80053; 81001; 82150; 83690; 83735; 84100; 85025; 96361; 96374; 96375; 99284; J2405; J2765; J7030